=== PATIENT | female | born 2005 ===

== ENCOUNTER 2024-05-01 19:33 | Emergency (ER) | payer OTHER, SELFPAY ==
[2024-05-01 20:02] VITALS: BP 98/65; PULSE 82; RESP 16; TEMP 37.2; O2SAT 98; BMI 19.4
--- NOTE | 2024-05-01 21:07 | ED_ITS ---
HPI - General Adult General Chief complaint: Abdominal Pain Stated complaint: severe abd pain Time Seen by Provider: 05/01/24 20:02 History of Present Illness HPI narrative: 18-year-old female [employer] student presents with abdominal cramping diffusely around her periumbilical area and epigastric area bilateral. She denies fever, chills, severe unilateral pain. Denies . She has taken a couple tests last couple of days of been negative. She reports some burning in her abdomen. She has had some dysuria and frequency. She presents to ER for evaluation. She has been largely healthy in the past. She has a mood swing reaction to Sudafed. She has had no chest pain, shortness of breath. Related Data Home Medications ?Medication ?Instructions ?Recorded ?Confirmed fluoxetine 20 mg capsule 20 mg PO DAILY 05/01/24 05/01/24 spironolactone 05/01/24 Allergies Allergy/AdvReac Type Severity Reaction Status Date / Time pseudoephedrine (From AdvReac mood swings Verified 05/01/24 20:06 Sudafed) Review of Systems Status of ROS: Reports: 6 or more systems reviewed and unremarkable except as noted in History and below PFSH PFS Social History Smoking Status: Never smoker How often do you have a drink containing alcohol: never AUDIT-C Alcohol total score: 0 Non-prescribed substance use: denies use Exam Narrative: Exam Narrative: Objective: Patient's vital signs are unremarkable She is alert or x3 no distress Pulses regular Abdomen benign soft nontender no mass or peritonitis. Negative CVA tenderness Extremities are no edema neurologic nonfocal Const: Vital Signs, click to edit/add: Vital Signs - 24 hr 05/01/24 20:02 Temperature 98.9 F Pulse Rate [Left P ulse Oximeter] 82 Respiratory Rate 16 Blood Pressure [Ri ght Upper Arm] 98/65 Pulse Oximetry 98 Oxygen Delivery Me thod Room Air Course Vital Signs Vital signs: Initial Vital Signs Temperature 98.9 F 05/01/24 20:02 Temperature Source Oral 05/01/24 20:02 Pulse Rate 82 05/01/24 20:02 Respiratory Rate 16 05/01/24 20:02 Blood Pressure 98/65 05/01/24 20:02 Blood Pressure Mean 76 05/01/24 20:02 Blood Pressure Position Sitting 05/01/24 20:02 Pulse Oximetry 98 05/01/24 20:02 Oxygen Delivery Method Room Air 05/01/24 20:02 Vital Signs Temperature 98.9 F 05/01/24 20:02 Pulse Rate 82 05/01/24 20:02 Respiratory Rate 16 05/01/24 20:02 Blood Pressure 98/65 05/01/24 20:02 Pulse Oximetry 98 05/01/24 20:02 Oxygen Delivery Method Room Air 05/01/24 20:02 Temperature 98.9 F 05/01/24 20:02 Pulse Rate 82 05/01/24 20:02 Respiratory Rate 16 05/01/24 20:02 Blood Pressure 98/65 05/01/24 20:02 Pulse Oximetry 98 05/01/24 20:02 Oxygen Delivery Method Room Air 05/01/24 20:02 Medications Administered Medications: Discontinued Medications Generic Name Dose Route Start Last Admin Trade Name Freq PRN Reason Stop Dose Admin Sodium Chloride 1,000 mls @ 6,000 mls/hr 05/01/24 21:15 05/01/24 21:29 0.9 % Sodium Chloride 1000 Ml IV 05/01/24 21:24 6,000 mls/hr .Q10M MITUL Administration Ceftriaxone Sodium 500 mg/ 100 mls @ 200 mls/hr 05/01/24 21:30 05/01/24 21:42 Sodium Chloride IVPB 05/01/24 21:31 200 mls/hr ONCE ONE Administration Medical Decision Making MDM Narrative Medical decision making narrative: [age] 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 Rule out UTI, rule out inflammatory issues, will check lab studies. At this point I do not think Sun needs imaging study as it is bilateral and more diffuse. She declined viral studies metal see if she will do them I have seen a lot of COVID cause GI upset and stomach pain. Will check the above-mentioned labs including heme 4 basic 7 CRP and disposition pending findings also give her some IV fluid saline. Chief recheck a test Lab Data Labs: Lab Results 05/01/24 05/01/24 Range/Units 21:10 21:20 WBC 5.90 (4.50-11.00) K/uL RBC 4.13 (4.00-5.20) m/uL Hgb 12.0 (12.0-16.0) gm/dL Hct 36.7 (33.0-51.0) % MCV 89 (80-100) fL MCH 29 (26-34) pg MCHC 33 (32-36) gm/dL RDW Coeff of Sanjuanita 12.6 (11.5-15.5) % Plt Count 258 (140-440) K/uL Neut % (Auto) 55.1 (42.0-72.0) % Lymph % (Auto) 33.4 (20-44) % [place] % (Auto) 10.5 (0.0-11.0) % Eos % (Auto) 0.8 (0.0-7.0) % Baso % (Auto) 0.2 (0.0-3.0) % Neut # (Auto) 3.25 (1.7-7.0) K/uL Lymph # (Auto) 1.97 (0.90-2.90) K/uL [place] # (Auto) 0.60 (0.00-0.90) K/UL Eos # (Auto) 0.05 (0.00-0.50) K/uL Baso # (Auto) 0.01 (0.00-0.30) K/uL Abs Immat Gran (auto) 0.00 (0.00-0.30) K/uL Imm/Tot Granulo (auto) 0.0 % Sodium 137 (135-149) mmol/L Potassium 3.7 (3.6-5.1) mmol/L Chloride 102 (96-114) mmol/L Carbon Dioxide 28 (20-32) mmol/L Anion Gap 7 (7-15) mEq/L BUN 12 (5-24) mg/dL Creatinine 0.6 (0.6-1.2) mg/dL Estimated Creat Clear 129.59 Estimated GFR 133 ml/min Glucose 80 (60-115) mg/dL Calcium 9.2 (8.7-10.8) mg/dL Total Bilirubin 0.2 (0.1-1.5) mg/dL Direct Bilirubin 0.1 (0.0-0.5) mg/dL AST 21 (12-35) U/L ALT 12 (4-35) U/L Alkaline Phosphatase 69 (40-150) U/L C-Reactive Protein < 0.5 L (0.5-1.0) mg/dL Total Protein 6.7 (6.0-8.3) g/dL Albumin 4.4 (3.3-5.0) g/dL Amylase 106 H (18-89) U/L HCG, Qual Negative (Negative) Urine Color Yellow (Yellow) Urine Appearance Clear (Clear) Urine pH 5.5 (5.0-8.5) Ur Specific [place] >= 1.030 (1.000-1.030) Urine Protein 2+ A (Negative) Urine Glucose (UA) Negative (Negative) Urine Ketones 1+ A (Negative) Urine Blood Negative (Negative) Urine Nitrite Positive A (Negative) Urine Bilirubin Negative (Negative) Urine Urobilinogen 0.2 (0.2-1.0) Ur Leukocyte Esterase Negative (Negative) Urine RBC 0-2 (0-2) Urine WBC 10-25 A (0-5) Ur Squamous Epith Cells None (None-Few) Urine Bacteria Many A (None) Discharge Plan Discharge Clinical Impression: Abdominal pain, Urinary tract infection Patient Disposition: Home, Self-Care Condition: Stable Additional Instructions: Light activity, antibiotic from [employer] med as prescribed Macrobid twice a day for 5 days. Drink lots of fluid, acidic juices such as cranberry juice orange juice. Return as needed Activity Level: Light activity Discharge Diet: Regular Prescriptions: No Action spironolactone fluoxetine 20 mg capsule 20 mg PO DAILY Stand Alone Forms: [email or web address] Info Instructions
[2024-05-01 21:19] LABS: Appearance Urine Clear (Clear); Bilirubin Urine Negative (Negative); Blood Urine Negative (Negative); Color Urine Yellow (Yellow); Glucose Urine Negative (Negative); Ketones Urine 1+ (Negative); Leukocyte Esterase Urine Negative (Negative); Nitrite Urine Positive (Negative); Protein Urine 2+ (Negative); Specific Gravity Urine >= 1.030 (1.000-1.030); Urobilinogen Urine 0.2 (0.2-1.0); pH Urine 5.5 (5.0-8.5)
[2024-05-01 21:27] LABS: Basophils Absolute Auto 0.01 K/uL (0.00-0.30); Basophils Percent Auto 0.2 % (0.0-3.0); Eosinophils Absolute Auto 0.05 K/uL (0.00-0.50); Eosinophils Percent Auto 0.8 % (0.0-7.0); Hematocrit 36.7 % (33.0-51.0); Lymphocytes Absolute Auto 1.97 K/uL (0.90-2.90); Lymphocytes Percent Auto 33.4 % (20-44); Mean Corpuscular HGB Conc 33 gm/dL (32-36); Mean Corpuscular Hemoglobin 29 pg (26-34); Mean Corpuscular Volume 89 fL (80-100); Monocytes Percent Auto 10.5 % (0.0-11.0); Neutrophils Absolute Auto 3.25 K/uL (1.7-7.0); Neutrophils Percent Auto 55.1 % (42.0-72.0); Platelet Count* 258 K/uL (140-440); RDW Coefficient of Variation % 12.6 % (11.5-15.5); Red Blood Count 4.13 m/uL (4.00-5.20)
[2024-05-01 21:28] LABS: Bacteria Urine Many; RBC Urine 0-2 (0-2)
[2024-05-01 21:28] LABS: Slide Review Reflex No
[2024-05-01] MEDS: 0.9 % SODIUM CHLORIDE 1000 ml 1,000 ML 6000 ML IV (21:29)
[2024-05-01 21:41] LABS: Chloride* 102 mmol/L (96-114)
[2024-05-01 21:42] LABS: Albumin* 4.4 g/dL (3.3-5.0); Potassium* 3.7 mmol/L (3.6-5.1); Sodium* 137 mmol/L (135-149)
[2024-05-01] MEDS: cefTRIAXone 500 MG in 0.9 % SODIUM CHLORIDE Mini-bag 100 ML 200 MG IVPB (21:42)
[2024-05-01 21:44] LABS: Amylase* 106 U/L (18-89); Creatinine* 0.6 mg/dL (0.6-1.2); Est. Creatinine Clearance* 129.59; Estimated Glomerular Filt Rate 133 ml/min
[2024-05-01 21:45] LABS: Alanine Aminotransferase* 12 U/L (4-35); Alkaline Phosphatase* 69 U/L (40-150); Anion Gap 7 mEq/L (7-15); Aspartate Amino Transferase* 21 U/L (12-35); Bilirubin Direct* 0.1 mg/dL (0.0-0.5); Bilirubin Total* 0.2 mg/dL (0.1-1.5); Blood Urea Nitrogen* 12 mg/dL (5-24); Calcium* 9.2 mg/dL (8.7-10.8); Carbon Dioxide* 28 mmol/L (20-32); Glucose* 80 mg/dL (60-115); Total Protein* 6.7 g/dL (6.0-8.3)
[2024-05-01 21:52] LABS: HCG Qualitative Serum* Negative (Negative)
[2024-05-01 22:02] LABS: C Reactive Protein* < 0.5 mg/dL (0.5-1.0)
[2024-05-01 22:19] LABS: PCR FLU A Negative PCR FLU A (Negative); PCR FLU B Negative PCR FLU B (Negative); PCR RSV Negative PCR RSV (Negative); SARS PCR* Negative SARS-CoV-2 (Negative)
--- OUTSIDE RECORDS SUMMARY | 2024-05-01 22:22 | XMS_ITS | Encounter Summary ---
Author Organization [facility] Address [address] [place] [address] Care Team Providers Care Pattern Setter Name Role Phone BriseidaNu alonso Feliberto ABRAHAM, SKIN DRIER Primary Care Provider Unavailable Reason for Visit * Reason Comments Immunotherapy Encounter Details Date Type Department Care Team (Latest Contact Info) Description 03/24/2024 1:45 PM PACKER DENTURE Nursing Visit Nursing at [address] [phone] Allergic rhinitis, unspecified seasonality, unspecified trigger (Primary Dx); Need for desensitization to allergens Social History Tobacco Use Types Packs/Day Years Used Date Smoking Tobacco: Never Smokeless Tobacco: Never Comments:no smokers 12/26 Alcohol Use Standard Drinks/Week Comments Not Asked 0 (1 standard drink = 0.6 oz pur e alcohol) Sex and Gender Information Value Date Recorded Sex Assigned at Not on file Gender Identity Not on file Sexual Orientation Not on file documented as of this encounter Plan of Treatment Upcoming Encounters Date Type Department Care Team (Late st Contact Info) Description 05/10/2024 11:15 AM PACKER DENTURE Appointment Nursing at [address] [phone] 06/20/2024 11:00 AM CDT [facility]ment [facility] [address] [place] [address] Leonor Augustine MD [address] [facility] 5th [place] [address] documented as of this encounter Visit Diagnoses Diagnosis Allergic rhinitis, unspecified seasonality, unspecified trigger- Primary Need for desensitization to allergens documented in this encounter Care Teams Pattern Setter Relationship Specialty Start Date End Date Nu Merchant, LEIGH, SKIN DRIER [address] [place] [address] ST - [address] [place] [address] PCP - General Pediatric Medicine 06/14/21 documented as of this encounter
--- OUTSIDE RECORDS SUMMARY | 2024-05-01 22:22 | XMS_ITS | Encounter Summary ---
Author Organization [facility] Address [address] [place] [address] Care Team Providers Care Magneto Repairer Name Role Phone BriseidaNu alonso Feliberto ABRAHAM, MAURO Primary Care Provider Unavailable Reason for Visit * Reason Comments Immunotherapy Encounter Details Date Type Department Care Team (Latest Contact Info) Description 03/18/2024 2:30 PM SUPPLY CHAIN INTERN Nursing Visit Nursing at [address] [phone] Allergic rhinitis, unspecified seasonality, unspecified trigger (Primary [...] st Contact Info) Description 05/10/2024 11:15 AM SUPPLY CHAIN INTERN Appointment Nursing at [address] [phone] 06/20/2024 11:00 AM CDT [facility]ointment [facility] [address] [place] [address] Leonor Augustine MD [address] [facility] 5th [place] [address] documented as of this encounter Visit Diagnoses Diagnosis Allergic rhinitis, unspecified seasonality, unspecified trigger- Primary Need for desensitization to allergens documented in this encounter Care Teams Magneto Repairer Relationship Specialty Start Date End Date Nu Merchant, LEIGH, DUCT LAYER SUPERVISOR [address] [place] [address] [address] - [address] [place] [address] PCP - General Pediatric Medicine 06/14/21 documented as of this encounter
--- OUTSIDE RECORDS SUMMARY | 2024-05-01 22:22 | XMS_ITS ---
Author Organization [facility] Address [facility] [address] [place] [address] Care Team Providers Care Concrete Block Layer Name Role Phone Larisa Garcia Primary Care Provider [phone] Carla Carmona Unavailable [phone] User, Clinician Unavailable [phone] REASON FOR VISIT Interfaced CHADIS scores Encounters Encounter Location Date Provider Diagnosis [place] [address] [address] [place] [address] 03/07/2024 Clinician User Plan Of Treatment No Information Progress Notes * JARED ANNE ADOB: 5 (18 yo F)Acc No.[id number]:03/07/2024 Patient: JARED PRASAD :2005 A ge:18 Y S ex:Female Phone: Address:[address] [place], [address] Subjective: * Chief Complaints: * I nterfaced CHADIS scores * Medical History: * Surgical History: * Hospitalization/Major Diagno stic Procedure: * Medications: Objective: * Vitals: * Physical Examination: Assessment: Plan: * Treatment: * Procedure Codes: * true * Date: Generated for Madhui denise/Mariang/eTransmitting on: 0 05/01/2024 10:21 PM POWER OPERATOR
--- OUTSIDE RECORDS SUMMARY | 2024-05-01 22:22 | XMS_ITS | Encounter Summary ---
Author Organization [employer] Address [address] [place] [address] Care Team Providers Care Lute Packer Or Applier Name Role Phone BriseidaNu alonso Feliberto ABRAHAM, GEOLOGY ASSOCIATE Primary Care Provider Unavailable Reason for Visit * Reason Comments Immunotherapy Encounter Details Date Type Department Care Team (Latest Contact Info) Description 03/29/2024 2:00 PM EARLY CHILDHOOD EDUCATOR AIDE Nursing Visit Nursing at [address] [phone] Allergic rhinitis, unspecified seasonality, unspecified trigger (Primary [...] st Contact Info) Description 05/10/2024 11:15 AM EARLY CHILDHOOD EDUCATOR AIDE Appointment Nursing at [place] [address] [place] [phone] 06/20/2024 11:00 AM CDT Appointment [facility] [address] [place] [address] Leonor Augustine MD [address] [facility] 5th [place] [address] documented as of this encounter Visit Diagnoses Diagnosis Allergic rhinitis, unspecified seasonality, unspecified trigger- Primary Need for desensitization to allergens documented in this encounter Care Teams Lute Packer Or Applier Relationship Specialty Start Date End Date Nu Merchant, LEIGH, GEOLOGY ASSOCIATE [address] [place] [address] ST - [id number] [place] [address] PCP - General Pediatric Medicine 06/14/21 documented as of this encounter
--- OUTSIDE RECORDS SUMMARY | 2024-05-01 22:22 | XMS_ITS | Patient Health Record ---
Author Organization [facility] Address [address] [place] [address] Care Team Providers Care Multi Mission Helicopter Aircrewman Name Role Phone Larisa Garcia Primary Care Provider Carla Carmona Unavailable [phone] User, Clinician Unavailable [phone] Cyril Hurtado Unavailable [phone] Allergies Allergen (clinical drug ingredient) Drug/Non Drug Allergy documented on EMR Reaction Allergy Type Onset Date Status seasonal (uncoded) Unknown Allergy A ctive Results Component Value Reference Range Notes GC/Chlamydia by PCR Reviewed date:03/08/2024 02:22:52 PM Interpretation: Performing Lab: Notes/Report: CHLAMYDIA TRACHOMATIS Negative Negative Negative for C. trachomatis rRNA by log deckman mediated amplification. A negative result by log deckman mediated amplification does not preclude the presence of infection because results are dependent on proper and adequate collection, absence of inhibitors and sufficient rRNA to be detected. NEISSERIA GONORRHOEAE Negative Negative Negative for N. gonorrhoeae rRNA by log deckman mediated amplification. A negative result by log deckman mediated amplification does not preclude the presence of C. trachomatis infection because results are dependent on proper and adequate collection, absence of inhibitors and sufficient rRNA to be detected. SPECIMEN SOURCE Urine Urine, Voided Reason For Referral No Information Medications Medication SIG (Take, Route, Frequency, Duration) Notes Start Date End Date Status Spironolactone 50 MG 2 tablets Orally da yaneli for 30 days Active FLUoxetine HCl 20 MG 1 capsule Orally On ce a day for 90 days 10/30/2023 Active Adapalene-Benzoyl Peroxide 0.3-2.5 % 1 application Externally Once a day for 90 days 05/28/2020 Not-Taking Vitamin D Active Immunizations Vaccine Route Administration Date Status Comme nts BCG Unknown 2004 Administered COVID-19 Pfizer (Comirnaty-PFR) Unknown 06/27/2020 Administered COVID-19 Pfizer (Comirnaty-PFR) Unknown 07/14/2020 Administered COVID-19 Pfizer (Comirnaty-PFR) Unknown 03/12/2021 Administered DTaP (under 7yrs) Unknown 2004 Administered DTaP (under 7yrs) Unknown 2004 Administered DTaP (under 7yrs) Unknown 2004 Administered DTaP (under 7yrs) Unknown 09/15/2005 Administered DTaP (under 7yrs) Unknown 06/28/2009 Administered Hep A (1-18 yrs) Unknown 12/22/2005 Administered Hep A (1-18 yrs) Unknown 07/23/2006 Administered Hep B (0-19yrs) Unknown 2004 Administered Hep B (0-19yrs) Unknown 2004 Administered Hep B (0-19yrs) Unknown 02/07/2005 Administered HIB Unknown 09/15/2005 Administered HPV9* IM Intramuscular 07/17/2015 Administered HPV9* IM Intramuscular 07/18/2016 Administered Influenza (3yrs+) Unknown 01/17/2011 Administered Influenza P-Free (6-35 months) Unknown 03/17/2006 Administered Influenza P-Free* Unknown 04/27/2017 Administered Influenza P-Free* IM Intramuscular 11/16/2017 Administered Influenza P-Free* IM Intramuscular 01/03/2021 Administered Influenza P-Free* IM Intramuscular 12/03/2021 Administered Influenza P-Free* Unknown 12/25/2022 Administered IPV Unknown 2004 Administered IPV Unknown 2004 Administered IPV Unknown 2004 Administered IPV Unknown 06/28/2009 Administered Measles Vaccine Unknown 02/07/2005 Administered Menactra IM Intramuscular 07/17/2015 Administered Menactra IM Intramuscular 08/30/2020 Administered MMRV Unknown 09/15/2005 Administered MMRV Unknown 06/28/2009 Administered PPD Unknown 09/15/2005 Administered PPD Unknown 07/23/2006 Administered Prevnar (PCV 7) Unknown 09/15/2005 Administered Prevnar (PCV 7) Unknown 12/22/2005 Administered Tdap IM Intramuscular 07/17/2015 Administered Problems Problem Type SNOMED Code ICD Code Onset Dates Problem Status W/U Status Risk Notes Problem 050637660 Adjustment disorder with mixed anxiety and depressed mood (F43.23) Active confirmed Problem 27045405 Acne vulgaris (L70.0) Active confirmed Problem 378564725 High frequency hearing loss of both ears (H91.93) Active confirmed Problem 465208529 Seasonal allergic rhinitis, unspecified trigger (J30.2) Active confirmed Vital Signs Blood pressure diastolic 62 mm Hg 03/07/2024 Height 66 in 03/07/2024 BMI Percentile 25.94 % 03/07/2024 Blood pressure systolic 100 mm Hg 03/07/2024 Weight 123 lbs 03/07/2024 BMI 19.85 kg/m2 03/07/2024 Encounters Encounter Location Date Provider Diagnosis [facility] [address] [place] [address] 06/22/2023 Larisa Garcia Adjustment disorder with mixed anxiety and depressed mood F43.23 [facility] [address] [facility] [address] [place] [address] [place] [phone] 10/29/2023 Cyril Hurtado Adjustment disorder with mixed anxiety and depressed mood F43.23 [facility] [address] [place] [address] 12/14/2023 Larisa Fuentesnjabhishek [facility] [address] [facility] [facility] [address] [place] [address] 03/03/2024 Larisa Garcia Adjustment disorder with mixed anxiety and depressed mood F43.23 [facility] [address] [place] [address] 03/07/2024 Clinician User [facility] [place] [address] [address] 03/07/2024 Clinician User [facility] [address] [place] [address] 04/04/2024 Larisa Valverdell [facility] [address] [place] [address] 03/07/2024 Larisa Garcia Encounter for general adult medical examination without abnormal findings Z00.00 and Adjustment disorder with mixed anxiety and depressed mood F43.23 [facility] [address] [address] [place] [address] 05/25/2023 Larisa Garcia Adjustment disorder with mixed anxiety and depressed mood F43.23 [facility] [address] [address] [place] [address] 11/24/2023 Larisa Garcia Adjustment disorder with mixed anxiety and depressed mood F43.23 Assessments Encounter Date Diagnosis (ICD Code) Assessment Notes Treatment Notes Treatment Clinical Notes Section Notes 05/25/2023 Adjustment disorder with mixed anxiety and depressed mood (ICD-10 - F43.23) visit performed by telemedicine. Lets increase the fluoxetine to 20 mg. If this does not help i owuld consider a change to pristiq 06/22/2023 Adjustment disorder with mixed anxiety and depressed mood (ICD-10 - F43.23) 03/03/2024 Adjustment disorder with mixed anxiety and depressed mood (ICD-10 - F43.23) 03/07/2024 Encounter for general adult medical examination without abnormal findings (ICD-10 - Z00.00) 11/24/2023 Adjustment disorder with mixed anxiety and depressed mood (ICD-10 - F43.23) lets continue current dose while she starts therapy. would consider increasing medication or changing to pristiq if things amplify with the winter months. 10/29/2023 Adjustment disorder with mixed anxiety and depressed mood (ICD-10 - F43.23) 03/07/2024 Adjustment disorder with mixed anxiety and depressed mood (ICD-10 - F43.23) will continue current dose of fluoxetine and consider decreasing dosage in the summerfor some flat affect. otherwise continuing therapy and doing well. med check in 6 months 05/25/2023 Other Time: I spent 3 5 minutes preparing to see patient (including chart review and preparation), obtaining and or reviewing additional medical history, evaluation, documenting clinical information in the electronic health record, independently interpreting results, communication results to family or caregiver, and/or coordinating care. 11/24/2023 Other 35 Minutes spent reviewing chart, preparing for visit, reviewing questionnaires, in patient encounter in telemedicine and then with documentation Plan Of Treatment No Information Insurance Providers Payer Name Payer Address Payer Phone Subscriber Number Group Number Insured Name Patient Relationship to Insured Coverage Start Date Coverage End Date [employer] [address] [place] [phone] [id number] JARED ANNE Self - patient is the insured 2 Medical (General) History Medical History History ICD Code high frequency b/l hearing l oss, follows with ENT in the past -- [facility]. adopted from [place] at 14.5 months. 6lbs 2 oz at 8 days of life at the time of her adoption she was diagnosed with bronchitis and received albuterol nebulization. recurrent cough she gets each winter. no albuterol used. 12/2005- [place] Brain MRI 2005-PPD -, TSH - nl 1.07, lead < 5 (nl) , Stool O+P - x3, CBC - nl 04/29/2019 - Dermatology - acne J03.01 Recurrent streptococcal tonsillitis 11/27/2020- [facility]iology [facility]- significant decrease in function -profound bilateral hearing loss referred for eval for amplification with Dr. Nam Gross 01/07/21 - [facility] ENT Dr. Gross - recommend amplification but not interested yet. 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
--- OUTSIDE RECORDS SUMMARY | 2024-05-01 22:22 | XMS_ITS ---
Author Organization [facility] Address [facility] [address] [place] [address] Care Team Providers Care K 9 Handler/ Deputy Name Role Phone Larisa Garcia Primary Care Provider Carla Carmona Unavailable [phone] User, Clinician Unavailable [phone] REASON FOR VISIT Interfaced CHADIS scores Encounters Encounter Location Date Provider Diagnosis [place] [address] [address] [place] [address] 03/07/2024 Clinician User Plan Of Treatment No Information Progress Notes * JARED ANNE ADOB: 5 (18 yo F)Acc No.[id number]:03/07/2024 Patient: JARED PRASAD :2005 A ge:18 Y S ex:Female Phone: Address:[address] [place], [address] Subjective: * Chief Complaints: * I nterfaced CHADIS scores * Medical History: * Surgical History: * Hospitalization/Major Diagno stic Procedure: * Medications: Objective: * Vitals: * Physical Examination: Assessment: Plan: * Treatment: * Procedure Codes: * true * Date: Generated for Madhui denise/Felice/eTransmitting on: 0 05/01/2024 10:22 PM MANAGER MOBILE
--- OUTSIDE RECORDS SUMMARY | 2024-05-01 22:22 | XMS_ITS | Encounter Summary ---
Author Organization [facility] Address [address] [place] [address] Care Team Providers Care Auto Tester Name Role Phone BudcollinsNu APRN, ROLLER OPERATOR Primary Care Provider Unavailable Reason for Visit * Reason Comments ALLERGY, SHOTS Encounter Details Date Type Department Care Team (Latest Contact Info) Description 04/19/2024 2:15 PM EXPERIENCED TRUCK DRIVER Nursing Visit Nursing at [address] [address] Allergic rhinitis, unspecified seasonality, unspecified trigger (Primary [...] st Contact Info) Description 05/10/2024 11:15 AM EXPERIENCED TRUCK DRIVER Appointment Nursing at [place] [address] [place] [phone] 06/20/2024 11:00 AM CDT [facility]ointment [facility] [address] [place] [address] Leonor Augustine MD [address] [facility] 5th [place] [address] documented as of this encounter Visit Diagnoses Diagnosis Allergic rhinitis, unspecified seasonality, unspecified trigger- Primary Need for desensitization to allergens documented in this encounter Care Teams Auto Tester Relationship Specialty Start Date End Date Nu Merchant APRN, ROLLER OPERATOR [address] [place] [address] [address] - [address] [place] [address] PCP - General Pediatric Medicine 06/14/21 documented as of this encounter
--- OUTSIDE RECORDS SUMMARY | 2024-05-01 22:22 | XMS_ITS | Clinical Summary ---
Author Organization [facility] Address [address] [place] [address] Care Team Providers Care Wheel Worker Name Role Phone BudcollinsNu APRN, MAURO Primary Care Provider Unavailable Source Comments You are receiving this document as you are listed as the primary care provider,follow-up provider, or the patient has been referred to you for consultation.This is in compliance with the Medicare and[facility] Centercame EHR Incentive Program,which states Providers who transition their patient to another setting of careor provider of care or refers their patient to another provider of care shouldprovide summary care record for each transition of care or referral. [facility] Allergies No known active allergies Medications Medication Sig Dispensed Refills Start Date End Date Status citalopram (CELEXA) 10 MG tablet Take 10 mg by mouth daily. 06/25/2020 Active Adapalene-Benzoyl Peroxide 0.1-2.5 % gel daily. 05/30/2020 Ac tive CRYSELLE-28 0.3-30 MG-MCG tablet Take 1 Tablet by mouth daily. 12/04/2021 Active ALBUterol sulfate HFA 108 (90 Base) MCG/ACT inhaler Inhale 2 Puffs every 4 hours as needed. 18 g 3 02/15/2024 Active Active Problems Problem Noted Date Diagnosed Date Mild intermittent asthma, uncomplicated Encounters Date Type Department Care Team Description 04/19/2024 2:15 PM FIELD SPECIALIST Nursing Visit Nursing at [address] [address] Allergic rhinitis, unspecified seasonality, unspecified trigger (Primary Dx); Need for desensitization to allergens 03/29/2024 2:00 PM FIELD SPECIALIST Nursing Visit Nursing at [address] [address] Allergic rhinitis, unspecified seasonality, unspecified trigger (Primary Dx); Need for desensitization to allergens 03/24/2024 1:45 PM FIELD SPECIALIST Nursing Visit Nursing at [address] [address] Allergic rhinitis, unspecified seasonality, unspecified trigger (Primary Dx); Need for desensitization to allergens 03/18/2024 2:30 PM FIELD SPECIALIST Nursing Visit Nursing at [address] [address] Allergic rhinitis, unspecified seasonality, unspecified trigger (Primary Dx); Need for desensitization to allergens 03/10/2024 Telephone Nursing at [address] [address] Nu Merchant, SENIOR INTERNAL AUDITOR, ASSISTANT MANAGER/EMBALMER Immunotherapy 03/02/2024 2:15 PM FIELD SPECIALIST Nursing Visit Nursing at [address] [address] Allergic rhinitis, unspecified seasonality, unspecified trigger (Primary Dx); Need for desensitization to allergens 02/24/2024 Notes/Orders [facility] [address] [place] [address] Rissa Keating MD Need for desensitization to allergens (Primary Dx); Allergic rhinitis, unspecified seasonality, unspecified trigger 02/15/2024 11:00 AM FIELD SPECIALIST Telemedicine [facility] [address] [place] [address] Rissa Keating MD Seasonal allergic rhinitis due to pollen (Primary Dx); House dust mite allergy; Pet allergy; Need for desensitization to allergens; Mild intermittent asthma without complication (HRC) 02/15/2024 Notes/Orders [facility] [address] [place] [address] Rissa Keating MD 02/10/2024 2:15 PM FIELD SPECIALIST Nursing Visit Nursing at [facility] [address] [address] [place] [address] Allergic rhinitis, unspecified seasonality, unspecified trigger (Primary Dx); Need for desensitization to allergens from Last 3 Months Immunizations Name Administration Dates Next Due 9vHPV (Gardasil 9) 07/18/2016, 7,07/17/2015,2015 BCG 2004,2004 DTaP 09/15/2005, 6,2004,2004,2004,2004,2004,0 2004 DTaP-IPV (Kinrix, 4-6 yrs) 06/28/2009,06/28/2009 Flu Vac (3+ yrs) 01/17/2011,01/17/2011 Flu Vac Preserv Free (3+yrs) 03/17/2006 Flu Vac Preserv Free (6-35 mo) 03/17/2006 HepA Ped/Adol (1-18 yrs) 07/23/2006,0505/2006,12/22/2005,2005 HepB Ped/Adol (0-18 yrs) 02/07/2005,01/21,2004,2004,2004,2004 Hib (PedvaxHIB) 09/15/2005,09/15/2005 IPV (Polio) 2004, 5,2004,2004,2004,2004 Influenza IIV4 (Quadrivalent ) 0.5mL (28243) 12/03/2021,01/03/2021,11/16/2017,2017,04/27/2017,04/27/2017 MCV4 (Menactra) 08/30/2020,,07/17/2015,2015 MMR 06/28/2009,06/28/2009 MMRV (ProQuad) 09/15/2005,09/15/2005 Measles 02/07/2005,02/07/2005 Pfizer Monovalent 12+ Purple Top 021,07/14/2020,07/14/2020,2020,06/27/2020 Pneumococcal 7, PED 12/22/2005, 6,09/15/2005,2005 TB Skin Test (PPD) 07/23/2006,09/15/2005 Tdap 07/17/2015,07/17/2015 Varicella 06/28/2009,06/28/2009 Family History * Patient is adopted Medical History Relation Name Comments Other Negative Family History Adop [place] Social History Tobacco Use Types Packs/Day Years Used Date Smoking Tobacco: Never Smokeless Tobacco: Never Comments:no smokers 12/26 Alcohol Use Standard Drinks/Week Comments Not Asked 0 (1 standard drink = 0.6 oz pur e alcohol) Sex and Gender Information Value Date Recorded Sex Assigned at Not on file Gender Identity Not on file Sexual Orientation Not on file Last Filed Vital Signs Vital Sign Reading Time Taken Comments Blood Pressure 103/76 01/13/2022 3:56 PM CDT Pulse 107 01/13/2022 3:56 PM CDT Temperature 36.6 C (97.9 F) 08/18/2020 2:23 PM CDT Respiratory Rate 16 08/18/2020 2:23 PM CDT Oxygen Saturation 98% 01/13/2022 3:56 PM CDT Inhaled Oxygen Concentration - - Weight 56.9 kg (125 lb 8 oz) 01/13/2022 3:56 PM CDT Height 166.4 cm (5' 5.5) 12/31/2020 2:02 PM CDT Head Circumference 50.7 cm 07/23/2006 10:40 AM CD T Head Circumference Percentile 98.61% 07/23/2006 10:40 AM CDT Growth Chart: CDC (Girls, 0- 36 Months) Body Mass Index - - Plan of Treatment Upcoming Encounters Date Type Department Care Team (Late st Contact Info) Description 05/10/2024 11:15 AM FIELD SPECIALIST Appointment Nursing at [facility] [address] [address] 06/20/2024 11:00 AM CDT [facility]ointment [facility] [address] [place], [place] [phone] Leonor Augustine MD [address] [facility] 5th [address] [place], [place] [phone] Health Maintenance Due Date Last Done Comments Chlamydia 2004 Hep C Screening (Preventive Services) 2004 Hep B Screening ([facility]) 2005 Pneumococcal (1 - PCV) 2010 6, 12/22/2005, 09/15/2005, Additional history exists HGB 2016 01/15/2006, 08/29/2005 HIV Screening (Preventive Services) 2020 Adult Preventive Visit 2022 7, 03/17/2006, 12/22/2005, Additional history exists Asthma ACT (score of 20 or higher) 03/14/20252023, 03/10/2024 DTaP/Tdap/Td (8 - Tdap) 07/16/2025 07/17/19 16, 07/17/2015, 06/28/2009, Additional history exists Zoster/Shingles (1 of 2) 2054 HepB Completed 02/07/2005, 01/21, 2004, Additional history exists Hib Completed 09/15/2005, 09/15/2005 HepA Completed 07/23/2006, 05/2006, 12/22/2005, Additional history exists IPV (Polio) Completed 06/28/2009, 10/2009, 2004, Additional history exists Varicella Completed 06/28/2009, 10/2009, 09/15/2005, Additional history exists HPV Vaccine Completed 07/18/2016, 06/22, 07/17/2015, Additional history exists MCV4 Completed 08/30/2020, 08/21, 07/17/2015, Additional history exists COVID-19 Vaccine Completed 12/23/2023, 07/2022, 03/12/2021, Additional history exists Influenza Completed 12/23/2023, 07/2022, 12/03/2021, Additional history exists Procedures Procedure Name Priority Date/Time Associated Diagnosis Comments COMPLETE BLOOD COUNT-W/DIFF Routine 01/15/2006 8:43 PM CDT Fever from Last 3 Months or Most Recently Relevant to Health Maintenance Results * (ABNORMAL) HEMOGRAM/PLTS/DIFF (01/15/2006 8:43 PM CDT) WBC 9.9 5.0 - 19.5 k/ul [facility] RBC 4.36 3.0 - 5.4 M/ul [facility] Hemoglobin 11.9 10.0 - 18.0 g/dl [facility] HCT 34.2 31.0 - 55.0 % [facility] MCV 78.5 77 - 104 fl [facility] MCH 27.2 26 - 34 pg [facility] MCHC 34.7 32 - 36 % [facility] RDW 12.4 11.5 - 16.0 % [facility] Platelets 244 150 - 450 k/ul [facility] PMN/Band 71(H) 14 - 45 % [facility] Lymph 20(L) 45 - 76 % [facility] [place] 9 4 - 12 % [facility] Eos 0 0 - 8 % [facility] Baso 0 0 - 1 % [facility] Neutrophil Absolute 7.0 1.5 - 8.5 k/ul [facility] Lymph Absolute 2.0(L) 4.0 - 10.5 k/ul [facility] [place] Absolute 0.9 0.0 - 1.0 k/ul [facility] Eos Absolute 0.0 0.0 - 0.5 k/ul [facility] Baso Absolute 0.0 0.0 - 0.2 k/ul [facility] Morphology Platelets adequate [facility] Morphology N/N [facility] Morphology Vacuolated PMN's [facility] 01/15/2006 8:43 PM CDT 01/15/2006 8:44 PM CDT Jasvir Larose MD LAB_1 Performing Organization Address City/State/[facility] Co de Phone Number [facility]ADD[facility] [address] [phone] from Last 3 Months or Most Recently Relevant to Health Maintenance Care Teams Wheel Worker Relationship Specialty Start Date End Date Nu Merchant, SENIOR INTERNAL AUDITOR, ASSISTANT MANAGER/EMBALMER [address] [place] [address] ST - [facility]IL [employer]OP [id number] [facility] [place] [address] PCP - General Pediatric Medicine 06/14/21
--- OUTSIDE RECORDS SUMMARY | 2024-05-01 22:22 | XMS_ITS ---
Author Organization [facility] Address [facility] [address] [place] [address] Care Team Providers Care Test Engineering Technician Name Role Phone Larisa Garcia Primary Care Provider Carla Carmona Unavailable [phone] REASON FOR VISIT Medication Refill Encounters Encounter Location Date Provider Diagnosis [facility] [address] [place], [place] [address] [place] [address] 04/04/2024 Larisa Garcia Plan Of Treatment No Information Progress Notes * JARED ANNE ADOB: [birth year] (18 yo F)Acc No.[id number]:04/04/2024 Patient: Moody CASTRO JARED Navarro :2005 A ge:18 Y S ex:Female Phone: Address:[address] [place] [place], [address] * true * Date: Generated for Madhui denise/Felice/eTransmitting on: 0 05/01/2024 10:22 PM FUEL SYSTEM MAINTENANCE SUPERVISOR
== END 2024-05-01 22:30 | disposition home or self-care (01) ==
LOC: ED 22:20
PROVIDERS: Emergency Provider Family Medicine
DX: N39.0 Urinary tract infection, site not specified (principal)
CPT/HCPCS: 36415; 80048; 80076; 81001; 82150; 84703; 85025; 86140; 87086; 87631; 96365; 99283; 99284; J0696; J7030